=== PATIENT | female | born 1980 ===

== ENCOUNTER 2021-03-01 10:51 | Outpatient (CLI) | payer OTHER ==
--- NOTE | 2021-03-04 10:16 | Mammography Report ---
DIGITAL SCREENING MAMMOGRAM WITH CAD, 03/04/2021 CLINICAL INFORMATION / INDICATION: Routine screening mammography. SCREENING MAMMO TECHNIQUE: Digital bilateral 2D mammography was obtained in the craniocaudal and mediolateral obliqu e projections. This examination was interpreted with the benefit of Computer-Aided Detection analysis . COMPARISON: Baseline FINDINGS: Breast Density: There are scattered areas of fibroglandular density. No dominant mass, suspicious calcifications, or architectural distortion in the right breast. There are segmental calcifications in the lower inner quadrant of the left breast, middle to posterio r depth, spanning up to approximately 6 cm in AP extent which require further evaluation. IMPRESSION: 1. Left breast calcifications require further evaluation with magnification views. Follow up recommendation: Special View: Mag BI-RADS Category 0: Incomplete. Needs additional imaging evaluation and/or prior mammograms for romeo holt. A "normal" or negative report should not discourage follow up or biopsy of a clinically significant f inding. A written summary of these findings will be mailed to the patient. The patient will be entered into a mammography reporting system which will generate a reminder letter for the patient's next appointmen t at the appropriate interval. The [employer] recommends yearly mammograms starting at age 40 and continuing as l ruma as a woman is in good health. Breast MRI is recommended for women with an approximate 20-25% or greater lifetime risk of breast cancer, including women with a strong family history of breast or ova anahi cancer or who have been treated for Hodgkin's disease. Signer Name: America Chatman MD Signed: 03/04/2021 10:12 AM Workstation Name: [id number]
== END 2021-03-01 10:52 | disposition home or self-care (01) ==
LOC: SPVWC 10:51
PROVIDERS: ATTEND Family Medicine
DX: Z12.31 Encounter for screening mammogram for malignant neoplasm of breast (principal)
CPT/HCPCS: 77067

== ENCOUNTER 2021-05-23 13:09 | Outpatient (CLI) | payer OTHER ==
--- NOTE | 2021-05-23 14:22 | Mammography Report ---
DIGITAL DIAGNOSTIC MAMMOGRAM WITH CAD CONVENTIONAL, 05/23/2021 CLINICAL INFORMATION / INDICATION: Patient presents as a callback from screening mammogram for [facility] evaluation of segmental calcifications in the left breast. TECHNIQUE: Digital left mammographic imaging was performed. Magnification views were obtained. This examination was interpreted with the benefit of Computer-aided Detection analysis. COMPARISON: Prior mammogram 03/01/2021 FINDINGS: Breast Density: There are scattered areas of fibroglandular density. As seen on prior screening mammogram, there are segmental pleomorphic calcifications within the lower inner quadrant of the left breast, middle depth, spanning up to approximately 8 cm in extent. The an terior extent of calcifications are located approximately 4 cm from the nipple. IMPRESSION: 1. Segmental pleomorphic calcifications in the left breast are considered moderately suspicious for m alignancy, stereotactic biopsy is recommended. Follow up recommendation: Biopsy BI-RADS Category 4: Suspicious for Malignancy. A "normal" or negative report should not discourage follow up or biopsy of a clinically significant f inding. A written summary of these findings will be mailed to the patient. The patient will be entered into a mammography reporting system which will generate a reminder letter for the patient's next appointmen t at the appropriate interval. According to the [employer], yearly mammograms are recommended starting at age 40 and continuing as long as a woman is in good health. Breast MRI is recommended for women with an lizabeth roximately 20-25% or greater lifetime risk of breast cancer, including women with a strong family his tory of breast or ovarian cancer and women who have been treated for Hodgkin's disease. Signer Name: America Chatman MD Signed: 05/23/2021 2:18 PM Workstation Name: [id number]
== END 2021-05-23 13:10 | disposition home or self-care (01) ==
LOC: SPVWC 13:09
PROVIDERS: ATTEND Family Medicine
DX: R92.1 Mammographic calcification found on diagnostic imaging of breast (principal)

== ENCOUNTER 2021-07-16 13:27 | Outpatient (CLI) | payer OTHER ==
--- NOTE | 2021-07-16 15:59 | Mammography Report ---
PERCUTANEOUS STEREOTACTIC-GUIDED LEFT BREAST BIOPSY WITH MARKER PLACEMENT HISTORY: Left breast calcifications. CONSENT: Technique, risks and alternatives were discussed with the patient and informed written conse nt obtained. PROCEDURE: The patient was seated upright in the stereotactic suite. The calcifications in the left lower inner breast were targeted mammographically. Lamp Wirer and stereo pair images were acquired to generate the com puter-derived coordinates for targeting. The skin overlying the chosen biopsy site were cleansed with Betadine. The skin and superficial soft tissues were anesthetized with a small amount of buffered 1 % lidocaine. The deeper soft tissues were anesthetized with buffered 1% lidocaine with epinephrine. The needle was position, however it was noted that the positioning appeared to be incorrect. We revie wed the images and recalibrated the system with the assistance of a company technologist. A small dermatotomy was created through which the [facility] biopsy device was placed. Pre and post fire st ereo pair images were acquired to confirm appropriate needle trajectory. Using vacuum assistance, 8 c ore specimen samples were acquired. A post procedure mammogram showed a few faint calcifications and an additional 6 core samples were obtained. A subsequent additional specimen documented calcification s within the sample. A biopsy marker was deposited at the biopsy site, and appropriate biopsy marker deposition confirmed via a stereo pair image. Manual pressure was applied at the biopsy site to achieve hemostasis. The incision margins were appro ximated with Steri-Strips. Postprocedure care instructions were administered in both verbal and writt en forms. The patient voiced understanding and departed the [facility] in stable, satisfactory con dition. IMPRESSION Technically successful stereotactic biopsy of left lower inner breast calcifications with placement o f a biopsy marker. An addendum will be added to this report at a later date once pathology results are available. Signer Name: Khari Stern MD Signed: 07/16/2021 3:54 PM Workstation Name: [id number]
--- NOTE | 2021-07-16 16:01 | Mammography Report ---
LEFT DIAGNOSTIC MAMMOGRAM INDICATION: Left lower inner breast calcifications. COMPARISON: 05/23/2021, 03/01/2021. FINDINGS: Left breast CC and LM projection mammograms were obtained. These document a biopsy marker a t the site of recent stereotactic biopsy. Interval decrease in calcifications within this region is n oted. IMPRESSION: Left breast diagnostic mammogram documenting accurate location of a biopsy marker within the left low er inner breast at site of stereotactic biopsy. BI-RADS Category 4: Suspicious for Malignancy. Signer Name: Khari Stern MD Signed: 07/16/2021 3:56 PM Workstation Name: [id number]
== END 2021-07-16 13:28 | disposition home or self-care (01) ==
LOC: SPVWC 13:27
PROVIDERS: ATTEND Family Medicine
DX: R92.8 Other abnormal and inconclusive findings on diagnostic imaging of breast (principal); D05.12 Intraductal carcinoma in situ of left breast
CPT/HCPCS: 19081; 77065; 88305; A4648